=== PATIENT | male | born 1950 | race Hispanic/Latino ===

== ENCOUNTER 2018-03-03 13:23 | Emergency (ER) | payer BC ==
[2018-03-03 13:37] VITALS: BP 135/82; RESP 18; TEMP 98.2; BMI 37.0
--- NOTE | 2018-03-03 15:15 | ED PDOC ---
Arrival/HPI - General Historian: Patient - History of Present Illness Narrative History of Present Illness (Text): 03/03/18 15:12 67 year old male whose past medical history includes hypertension, CAD, and high cholesterol, presents for evaluation of lower back pain, and right sided rib pain s/p unwitnessed mechanical fall yesterday afternoon. Patient was walking down his basement stairs with a basket of laundry when a handle broke causing him to fall down four stairs and admits to head strike, denies loss of consciousness. Patient is currently complaining of worsening lower back pain and right rib pain, pain is worse with movement, he took an oxycodone this morning for pain with little relief. He denies vision changes, dizziness, headache, neck pain, chest pain, sob, abdominal pain, numbness, bladder incontinence, saddle anesthesia, parasthesia, weakness, or any other associated symptoms. Time/Duration: 24 hours Symptom Course: Worsening Activities at Onset: Light Context: Home <Raya Carrillo - Last Filed: 03/04/18 11:07> <Kit Yost - Last Filed: 03/04/18 14:13> - General Chief Complaint: Trauma Past Medical History - Provider Review Nursing Documentation Reviewed: Yes - Infectious Disease Hx of Infectious Diseases: None - Cardiac Hx Hypertension: Yes Hx Internal Defibrillator: Yes Other/Comment: cardiac stent - Pulmonary Hx Respiratory Disorders: No - Hematological/Oncological Hx Blood Disorders: No - Integumentary Hx Dermatological Disorder: No - Genitourinary/Gynecological Hx Genitourinary Disorders: No - Psychiatric Hx Substance Use: No - Anesthesia Hx Anesthesia: No <Raya Carrillo - Last Filed: 03/04/18 11:07> Family/Social History - Physician Review Nursing Documentation Reviewed: Yes Family/Social History: No Known Family HX Smoking Status: Current Some Days Smoker Hx Alcohol Use: No Hx Substance Use: No <Raya Carrillo - Last Filed: 03/04/18 11:07> Allergies/Home Meds <Raya Carrillo - Last Filed: 03/04/18 11:07> <Kit Yost - Last Filed: 03/04/18 14:13> Allergies/Adverse Reactions: Allergies No Known Allergies Allergy (Verified 03/03/18 14:10) Review of Systems - Physician Review All systems were reviewed & negative as marked: Yes - Review of Systems Constitutional: absent: Fevers Eyes: absent: Vision Changes Respiratory: absent: SOB, Cough Cardiovascular: absent: Chest Pain Gastrointestinal: absent: Abdominal Pain, Diarrhea, Nausea, Vomiting Musculoskeletal: Back Pain (lower back pain ), Other (right sided rib pain ). absent: Neck Pain Neurological: absent: Headache, Dizziness <Motter,Raya - Last Filed: 03/04/18 11:07> Physical Exam Vital Signs Reviewed: Yes Vital Signs Temp Pulse Resp BP Pulse Ox 03/03/18 13:33 98.2 F 86 18 135/82 96 Temperature: Afebrile Blood Pressure: Normal Pulse: Regular Respiratory Rate: Normal Appearance: Positive for: Well-Appearing, Non-Toxic, Comfortable Pain Distress: None Mental Status: Positive for: Alert and Oriented X 3 - Systems Exam Head: Present: Atraumatic, Normocephalic Pupils: Present: PERRL Extroacular Muscles: Present: EOMI Conjunctiva: Present: Normal Mouth: Present: Moist Mucous Membranes Neck: Present: Normal Range of Motion Respiratory/Chest: Present: Clear to Auscultation, Good Air Exchange, Tender to Palpation (tenderness to palpation over the right superior anterior and lateral ribs). No: Respiratory Distress, Accessory Muscle Use Cardiovascular: Present: Regular Rate and Rhythm, Normal S1, S2, Peripheal Pulses Present Abdomen: Present: Normal Bowel Sounds. No: Tenderness, Distention, Peritoneal Signs, Rebound, Guarding Back: Present: Normal Inspection, Midline Tenderness (lumbar spine), Paraspinal Tenderness (right lumbar) Upper Extremity: Present: Normal Inspection, Normal ROM, NORMAL PULSES. No: Cyanosis, Edema, Tenderness, Swelling, Erythema Lower Extremity: Present: Normal Inspection, NORMAL PULSES, Normal ROM. No: Edema, Tenderness, Swelling, Erythema Neurological: Present: GCS=15, CN II-XII Intact, Speech Normal, Motor Func Grossly Intact, Normal Sensory Function, Gait Normal Skin: Present: Warm, Dry, Normal Color. No: Rashes, Other (ecchymosis) Psychiatric: Present: Alert, Oriented x 3, Normal Insight, Normal Concentration, Normal Affect, Normal Mood <Motter,Raya - Last Filed: 03/04/18 11:07> Vital Signs Temp Pulse Resp BP Pulse Ox 03/03/18 17:00 80 18 97 03/03/18 13:33 98.2 F 86 18 135/82 96 <Kit Yost - Last Filed: 03/04/18 14:13> Medical Decision Making ED Course and Treatment: 03/03/18 15:19 Impression: 67 year old male who presents to the emergency department complaining of lower back pain and right sided rib pain. Plan: -- Head CT w/o contrast -- Lumbar spine w/o contrast -- Right ribs and PA chest X-ray -- Right shoulder X-ray -- Reassess and disposition Progress Notes: CT head: negative for acute abnormality CT Lumbar spine: T12 compression fracture of indeterminite age, otherwise no acute pathology Right shoulder XR: no acute fracture or dislocation Right rib XR: anterior deformity in upper ribs of indeterminate age. Spoke with radiologist Dr. Rachel, states that there is a deformity, but no acute displaced fracture is appreciated. No PTX. Will give incentive spirometer and pain mediation for possible rib fracture, with outpatient followup Diagnostic testing results and plan of care discussed with patient, and strict instructions given regarding prescriptions, importance of follow up, and signs to return to Emergency Department, to include SOB, dizziness, headache, worsening pain, or any other new/worsening symptoms. Patient verbalizes understanding of discussion. Patient A&Ox3, ambulating with steady gait, stable for discharge home. - RAD Interpretation Narrative RAD Interpretations (Text): Head CT: FINDINGS: HEMORRHAGE: No intracranial hemorrhage. BRAIN: Good corticomedullary differentiation is seen. Proportional, diffuse expansion of the ventriculosulcal and cisternal spaces is appreciated with limited white matter lucency compatible with diffuse cerebral atrophy and chronic microangiopathy. No suspicious extra-axial fluid collection is identified and the midline brain anatomy appears grossly nonfocal as imaged. There is no mass effect throughout. VENTRICLES: Unremarkable. No hydrocephalus. CALVARIUM: Unremarkable. PARANASAL SINUSES: Unremarkable as visualized. No significant inflammatory changes. MASTOID AIR CELLS: Unremarkable as visualized. No inflammatory changes. OTHER FINDINGS: None. IMPRESSION: Unremarkable unenhanced head CT. Lumbar Spine CT: FINDINGS: VERTEBRAE: Normal curvature. No spondylolisthesis. No lumbar spinal fracture identified however the T12 vertebral body is anteriorly wedged mildly indicative of a in compression fracture of indeterminate age. No destructive bony lesion associated. Advanced multilevel spondylosis appreciated mostly at inferior levels and is limited at the upper mid lumbar spine. Advanced multilevel facet joint degenerative arthropathy is identified and prevertebral as well as paraspinal soft tissues reflect only heavy aortic atherosclerotic calcifications. Severe disc height loss seen at L4-5 and L5-S1 including vacuum disc changes. DISCS/SPINAL CANAL/NEURAL FORAMINA: T12-L1: Mild degenerative central canal stenosis caused by circumferential disc osteophyte complex and mild facet joint degenerative arthropathy with borderline bilateral neural foraminal stenosis L1-2: Unremarkable. L2-3: Unremarkable. L3-4: Iuhj-zf-blujtarh facet joint degenerative changes are identified encroaching lateral recesses without causing significant central canal or neural foraminal stenosis. L4-5: A large circumferential disc osteophyte complexes greater than posterior but does combined with gross facet joint degenerative changes resulting in a jfwa-uw-mbjuwewn central canal stenosis, osdk-az-vfylngah left and severe right neural foraminal stenosis. Asymmetries on the basis of differential osteophyte development. L5-S1: A circumferential disc osteophyte complex is identified causing borderline central stenosis due to moderate facet joint degenerative arthropathy as well. Moderate to severe bilateral neural foraminal stenosis identified on degenerative basis. OTHER FINDINGS: None. IMPRESSION: 1. No acute lumbar fracture or spondylolisthesis identified. A mild anterior wedge compression fracture of T12 is appreciated of indeterminate age. 2. No severe disc herniation or large disc herniation appreciated throughout the exam. 3. Tihq-uk-mqentmtv degenerative central stenosis L4-5, borderline at L5-S1. Variable inferior lumbar neural foraminal stenoses bilaterally. Ribs and PA Chest: FINDINGS: RIGHT RIBS: Right-sided rib deformities are seen which are probably the result of a previous fracture. There is no acute displaced fracture seen. There is also some pleural thickening on the right LUNGS: Clear. PLEURA: No pneumothorax or pleural fluid. CARDIOVASCULAR: Normal cardiac size. No pulmonary vascular congestion. No aortic atherosclerotic calcification present OTHER FINDINGS: None. IMPRESSION: Right-sided rib deformities are seen which are probably the result of a previous fracture. There is no acute displaced fracture seen. There is also some pleural thickening on the right Radiology Orders: 03/03/18 14:18 HEAD W/O CONTRAST [CT] Stat LUMBAR SPINE W/O CONTRAST [CT] Stat 03/03/18 14:21 RIBS RIGHT & PA CHEST [RAD] Stat SHOULDER RIGHT [RAD] Stat Saw Superintendent: Radiologist <Raya Carrillo - Last Filed: 03/04/18 11:07> - RAD Interpretation Radiology Orders: 03/03/18 14:18 HEAD W/O CONTRAST [CT] Stat LUMBAR SPINE W/O CONTRAST [CT] Stat 03/03/18 14:21 RIBS RIGHT & PA CHEST [RAD] Stat SHOULDER RIGHT [RAD] Stat <Kit Yost - Last Filed: 03/04/18 14:13> - Scribe Statement The provider has reviewed the documentation as recorded by the Veronicaibsarahi Ha Provider Scribe Attestation: All medical record entries made by the Scribe were at my direction and personally dictated by me. I have reviewed the chart and agree that the record accurately reflects my personal performance of the history, physical exam, m edical decision making, and the department course for this patient. I have also personally directed, reviewed, and agree with the discharge instructions and disposition. <Raya Carrillo - Last Filed: 03/04/18 11:07> - PA / LICENSED ACUPUNCTURIST / Resident Statement / has reviewed & agrees with the documentation as recorded. <Kit Yost - Last Filed: 03/04/18 14:13> Disposition/Present on Arrival - Present on Arrival Any Indicators Present on Arrival: No History of DVT/PE: No History of Uncontrolled Diabetes: No Urinary Catheter: No History of Decub. Ulcer: No History Surgical Site Infection Following: None - Disposition Have Diagnosis and Disposition been Completed?: Yes Disposition Time: 16:16 Patient Plan: Discharge <Raya Carrillo - Last Filed: 03/04/18 11:07> <Kit Yost - Last Filed: 03/04/18 14:13> - Disposition Diagnosis: Rib injury Disposition: HOME/ ROUTINE Condition: STABLE Discharge Instructions (ExitCare): Rib Fracture (DC) Additional Instructions: Use incentive spirometer 10 times daily Take percocet for unbearable pain Take ibuprofen every 6-8 hours as needed for pain Followup with primary doctor within 2 days Return to ED for any new/worsening symptoms Prescriptions: oxyCODONE/Acetaminophen [Percocet 5/325 mg Tab] 1 tab PO Q6H PRN #10 tab PRN Reason: Pain, Severe (8-10) Referrals: Celestine Marion MD [Primary Care Provider] - Follow up with primary Forms: [email or web address] [facility] (Hebrew), WORK NOTE
--- NOTE | 2018-03-03 15:21 | CT ---
Date of service: 03/03/2018 PROCEDURE: CT HEAD WITHOUT CONTRAST. HISTORY: headache COMPARISON: None available. TECHNIQUE: Axial computed tomography images were obtained through the head/brain without intravenous contrast. Radiation dose: Total exam DLP = 1150.56 mGy-cm. This CT exam was performed using one or more of the following dose reduction techniques: Automated exposure control, adjustment of the mA and/or kV according to patient size, and/or use of iterative reconstruction technique. FINDINGS: HEMORRHAGE: No intracranial hemorrhage. BRAIN: Good corticomedullary differentiation is seen. Proportional, diffuse expansion of the ventriculosulcal and cisternal spaces is appreciated with limited white matter lucency compatible with diffuse cerebral atrophy and chronic microangiopathy. No suspicious extra-axial fluid collection is identified and the midline brain anatomy appears grossly nonfocal as imaged. There is no mass effect throughout. VENTRICLES: Unremarkable. No hydrocephalus. CALVARIUM: Unremarkable. PARANASAL SINUSES: Unremarkable as visualized. No significant inflammatory changes. MASTOID AIR CELLS: Unremarkable as visualized. No inflammatory changes. OTHER FINDINGS: None. IMPRESSION: Unremarkable unenhanced head CT.
--- NOTE | 2018-03-03 15:52 | CT ---
Date of service: 03/03/2018 PROCEDURE: CT Lumbar Spine without contrast HISTORY: fall, low back pain COMPARISON: None available. TECHNIQUE: Axial computed tomography images were obtained of the lumbar spine without the use of intravenous contrast. Coronal and sagittal reformatted images were created and reviewed. Radiation dose: Total exam DLP = 1532.23 mGy-cm. This CT exam was performed using one or more of the following dose reduction techniques: Automated exposure control, adjustment of the mA and/or kV according to patient size, and/or use of iterative reconstruction technique. FINDINGS: VERTEBRAE: Normal curvature. No spondylolisthesis. No lumbar spinal fracture identified however the T12 vertebral body is anteriorly wedged mildly indicative of a in compression fracture of indeterminate age. No destructive bony lesion associated. Advanced multilevel spondylosis appreciated mostly at inferior levels and is limited at the upper mid lumbar spine. Advanced multilevel facet joint degenerative arthropathy is identified and prevertebral as well as paraspinal soft tissues reflect only heavy aortic atherosclerotic calcifications. Severe disc height loss seen at L4-5 and L5-S1 including vacuum disc changes. DISCS/SPINAL CANAL/NEURAL FORAMINA: T12-L1: Mild degenerative central canal stenosis caused by circumferential disc osteophyte complex and mild facet joint degenerative arthropathy with borderline bilateral neural foraminal stenosis L1-2: Unremarkable. L2-3: Unremarkable. L3-4: Dqcl-yu-gxoejzig facet joint degenerative changes are identified encroaching lateral recesses without causing significant central canal or neural foraminal stenosis. L4-5: A large circumferential disc osteophyte complexes greater than posterior but does combined with gross facet joint degenerative changes resulting in a jqvk-rs-jcojjqww central canal stenosis, wocy-wr-aujpzrmm left and severe right neural foraminal stenosis. Asymmetries on the basis of differential osteophyte development. L5-S1: A circumferential disc osteophyte complex is identified causing borderline central stenosis due to moderate facet joint degenerative arthropathy as well. Moderate to severe bilateral neural foraminal stenosis identified on degenerative basis. OTHER FINDINGS: None. IMPRESSION: 1. No acute lumbar fracture or spondylolisthesis identified. A mild anterior wedge compression fracture of T12 is appreciated of indeterminate age. 2. No severe disc herniation or large disc herniation appreciated throughout the exam. 3. Bias-px-rkhdebqq degenerative central stenosis L4-5, borderline at L5-S1. Variable inferior lumbar neural foraminal stenoses bilaterally.
--- NOTE | 2018-03-03 16:06 | RAD ---
Date of service: 03/03/2018 PROCEDURE: Radiographs of the Chest and Right Ribs. HISTORY: fall, right sided pain COMPARISON: None available. TECHNIQUE: Frontal radiograph of the chest and multiple oblique radiographs of the right ribs were obtained. FINDINGS: RIGHT RIBS: Right-sided rib deformities are seen which are probably the result of a previous fracture. There is no acute displaced fracture seen. There is also some pleural thickening on the right LUNGS: Clear. PLEURA: No pneumothorax or pleural fluid. CARDIOVASCULAR: Normal cardiac size. No pulmonary vascular congestion. No aortic atherosclerotic calcification present OTHER FINDINGS: None. IMPRESSION: Right-sided rib deformities are seen which are probably the result of a previous fracture. There is no acute displaced fracture seen. There is also some pleural thickening on the right
--- NOTE | 2018-03-03 16:10 | RAD ---
Date of service: 03/03/2018 PROCEDURE: Radiographs of the Right Shoulder HISTORY: fall, right sided pain COMPARISON: No prior. FINDINGS: BONES: Normal. No fracture. JOINTS: Normal. Glenohumeral and acromioclavicular joints preserved. No osteoarthritis. SOFT TISSUES: Normal. OTHER FINDINGS: None. IMPRESSION: Normal radiographs of the right shoulder.
[2018-03-03 18:24] VITALS: PULSE 80; O2SAT 97
== END 2018-03-03 18:24 | disposition home or self-care (01) ==
LOC: ED 13:23
DX: S29.9XXA Unspecified injury of thorax, initial encounter (principal); W10.9XXA Fall (on) (from) unspecified stairs and steps, initial encounter; Y93.01 Activity, walking, marching and hiking; E78.00 Pure hypercholesterolemia, unspecified; I10 Essential (primary) hypertension; I25.10 Atherosclerotic heart disease of native coronary artery without angina pectoris